=== PATIENT | male | born 1945 | race Caucasian/White ===

== ENCOUNTER 2020-08-22 18:55 | Emergency (ER) | payer MEDICARE ==
[~2020-08-22] VITALS: Ht 177.8 cm; Wt 79.4 kg
[2020-08-22] MEDS ORDERED: LIDOCAINE 1% 5ML-MPF INJ STA (19:18)
[2020-08-22] MEDS ORDERED: LIDOCAINE HCL 1% LOCAL INJ 20 ML VIAL ONE (19:27)
[2020-08-22] MEDS ORDERED: CEPHALEXIN500 MG PO (20:37)
[2020-08-22 20:42] VITALS: BP 160/80
== END 2020-08-22 20:42 | disposition home or self-care (01) ==
LOC: FSED 19:18
DX: S51.011A Laceration without foreign body of right elbow, initial encounter (principal); S20.212A Contusion of left front wall of thorax, initial encounter; W18.2XXA Fall in (into) shower or empty bathtub, initial encounter; Y93.E1 Activity, personal bathing and showering; Y92.002 Bathroom of unspecified non-institutional (private) residence as the place of occurrence of the external cause
CPT/HCPCS: 12004; 71250; 74150; 99284; J2001

== ENCOUNTER 2020-08-24 09:17 | Emergency (ER) | payer MEDICARE ==
[~2020-08-24] VITALS: Ht 177.8 cm; Wt 79.4 kg
[~2020-08-24 09:17] MED LIST: CEPHALEXIN500 MG PO
[2020-08-24] MEDS ORDERED: CYCLOBENZAPRINE5 MG PO (09:42)
[2020-08-24] MEDS ORDERED: ULTRAM 50MG50 MG PO (09:42)
[2020-08-24] MEDS: KETOROLAC TROMETHAMINE 60 MG/2 ML VIAL IM ONE (09:47)
[2020-08-24] MEDS ORDERED: KETOROLAC TROMETHAMINE 30 MG/ML VIAL ONE (09:52)
== END 2020-08-24 09:56 | disposition home or self-care (01) ==
LOC: FSED 09:44
DX: R07.89 Other chest pain (principal); S22.32XA Fracture of one rib, left side, initial encounter for closed fracture; R91.8 Other nonspecific abnormal finding of lung field; J44.9 Chronic obstructive pulmonary disease, unspecified; N28.1 Cyst of kidney, acquired; I10 Essential (primary) hypertension
CPT/HCPCS: 96372; 99283; J1885